=== PATIENT | female | born 1975 | race African-American/Black ===

== ENCOUNTER 2020-04-04 04:15 | Emergency (ER) | payer OTHER ==
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
[2020-04-04 04:50] VITALS: BP 120/75; PULSE 74; TEMP 98.6; BMI 22.6
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
[2020-04-04 09:01] LABS: BASO % 0.5 % (0-2.0); EOS % 0.6 % (0-4.5); HEMATOCRIT 34.8 % (32.4-45.2); HEMOGLOBIN 11.6 GM/dL (10.7-15.3); LYMPH % 32.9 % (8-40); MCH 31.7 pg (25.7-33.7); MCHC 33.2 g/dl (32.0-36.0); MEAN CELL VOLUME 95.4 fl (80-96); MEAN PLT VOLUME 8.5 fl (7.5-11.1); MONO % 6.4 % (3.8-10.2); NEUT % 59.6 % (42.8-82.8); PLATELET COUNT 201 K/MM3 (134-434); RBC 3.65 M/mm3 (3.60-5.2); RDW 13.2 % (11.6-15.6); WHITE BLOOD COUNT 4.6 K/mm3 (4.0-10.0)
[2020-04-04 09:26] LABS: ALK PHOS 43 U/L (45-117); ANION GAP 9 MMOL/L (8-16); BILIRUBIN,TOTAL 0.4 mg/dL (0.2-1); CALCIUM 8.6 mg/dL (8.5-10.1); CHLORIDE 110 mmol/L (98-107); CO2 26 mmol/L (21-32); CREATININE 0.8 mg/dL (0.55-1.3); GLUCOSE,RANDOM 79 mg/dL (74-106); POTASSIUM 3.6 mmol/L (3.5-5.1); SGOT/AST 36 U/L (15-37); SGPT/ALT 24 U/L (13-61); SODIUM 145 mmol/L (136-145); TOT PROT 7.5 g/dl (6.4-8.2)
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
== END 2020-04-04 13:29 | disposition home or self-care (01) ==
LOC: JER 04:15
DX: S02.31XA Fracture of orbital floor, right side, initial encounter for closed fracture (principal)
CPT/HCPCS: 36415; 70450-TC; 70486-TC; 72125-TC; 73562-TC-LT-FY; 73562-TC-RT-FY; 80053; 80307; 84484; 84703; 85025; 99285-25

== ENCOUNTER 2022-06-07 12:57 | Emergency (ER) | payer OTHER ==
[2022-06-07 13:03] VITALS: BP 110/45; PULSE 68; RESP 18; TEMP 98.1; BMI 25.0
[2022-06-07] MEDS ORDERED: KETOROLAC TROMETHAMINE 30 MG/1 ML VIAL IM ONE (14:18)
[2022-06-07] MEDS ORDERED: LIDOCAINE 5% TOPICAL PATCH TP ONE (14:18)
[2022-06-07] MEDS ORDERED: diazePAM 5 MG TABLET PO ONE (14:18)
[2022-06-07] MEDS ORDERED: ACETAMINOPHEN 500 MG TABLET (FP) PO ONE (14:18)
[2022-06-07] MEDS ORDERED: LIDOCAINE 5% TOPICAL PATCH ONE (14:57)
[2022-06-07] MEDS ORDERED: KETOROLAC TROMETHAMINE 30 MG/1 ML VIAL ONE (14:58)
[2022-06-07] MEDS ORDERED: ACETAMINOPHEN 325 MG TABLET (FP) ONE (14:58)
[2022-06-07] MEDS ORDERED: diazePAM 5 MG TABLET ONE (14:58)
[2022-06-07] MEDS ORDERED: LIDOCAINE PATCH REMOVAL MC ONE (22:00)
== END 2022-06-07 15:41 | disposition home or self-care (01) ==
LOC: JER 12:57 → JERFT 12:57
PROC: 3E023GC Introduction of Other Therapeutic Substance into Muscle, Percutaneous Approach (ICD-10-PCS; principal; 2022-06-07)
DX: R07.81 Pleurodynia (principal)
CPT/HCPCS: 71045-TC-FY; 71101-TC-LT-FY; 99284-25

== ENCOUNTER 2023-07-31 04:25 | Day surgery (SDC) | payer OTHER ==
[2023-07-27 10:33] VITALS: BMI 25.7
[2023-07-31] MEDS ORDERED: PROMETHAZINE HCL 25 MG/1 ML VIAL IVPB PRN (09:11)
[2023-07-31] MEDS ORDERED: ONDANSETRON 4 MG/2 ML VIAL IVPUSH PRN ×2 (09:11→10:57)
[2023-07-31] MEDS ORDERED: ACETAMINOPHEN 1000 MG/100 ML BAG IVPB PRN (09:11)
[2023-07-31] MEDS ORDERED: oxyCODONE HCL 5 MG TABLET PO PRN ×3 (09:11→10:57)
[2023-07-31] MEDS ORDERED: LACTATED RINGERS SOLUTION 1,000 ML IV SCH (09:15)
[2023-07-31] MEDS ORDERED: KETOROLAC TROMETHAMINE 30 MG/1 ML VIAL ONE (09:37)
[2023-07-31] MEDS ORDERED: SEVOFLURANE 250 ML BTL ONE (09:37)
[2023-07-31] MEDS ORDERED: LIDOCAINE HCL/PF 2% SDV 5ML VIAL ONE (09:37)
[2023-07-31] MEDS ORDERED: PROPOFOL 20 ML ONE (09:37)
[2023-07-31] MEDS ORDERED: DEXAMETHASONE SOD PHOSPHATE 4 MG/1 ML VIAL ONE (09:37)
[2023-07-31] MEDS ORDERED: ONDANSETRON 4 MG/2 ML VIAL ONE (09:37)
[2023-07-31] MEDS ORDERED: MIDAZOLAM HCL 2 MG/2 ML SINGLE DOSE VIAL ONE (09:37)
[2023-07-31] MEDS ORDERED: IBUPROFEN 600 MG TABLET (FP) PO PRN (10:57)
[2023-07-31] MEDS ORDERED: IBUPROFEN 800 MG/8 ML IJ IVPB PRN (10:57)
[2023-07-31] MEDS ORDERED: ELECTROLYTE-148 SOLN 1,000 ML IV SCH (11:00)
[2023-07-31 11:40] VITALS: TEMP 98.2
[2023-07-31 12:20] VITALS: RESP 16
[2023-07-31 13:17] VITALS: BP 122/72; PULSE 65
== END 2023-07-31 13:50 | disposition home or self-care (01) ==
LOC: JASU-SURG 04:25
PROVIDERS: ATTEND Obstetrics & Gynecology
PROC: 0UDB7ZZ Extraction of Endometrium, Via Natural or Artificial Opening (ICD-10-PCS; principal; 2023-07-31 10:00)
DX: N93.9 Abnormal uterine and vaginal bleeding, unspecified (principal); N84.0 Polyp of corpus uteri; N88.2 Stricture and stenosis of cervix uteri
CPT/HCPCS: 81025; 94760

== ENCOUNTER 2024-06-07 13:14 | Emergency (ER) | payer OTHER ==
[2024-06-07 13:21] VITALS: BP 104/71; PULSE 69; RESP 18; TEMP 98.6; BMI 25.4
[2024-06-07] MEDS ORDERED: ACETAMINOPHEN 325 MG TABLET (FP) ONE (14:11)
[2024-06-07] MEDS: ACETAMINOPHEN 325 MG TABLET (FP) PO ONE (14:15)
== END 2024-06-07 16:30 | disposition home or self-care (01) ==
LOC: JERFT 13:14
DX: S00.83XA Contusion of other part of head, initial encounter (principal); S60.511A Abrasion of right hand, initial encounter; S60.512A Abrasion of left hand, initial encounter; S80.211A Abrasion, right knee, initial encounter; S80.212A Abrasion, left knee, initial encounter; M54.2 Cervicalgia; W01.0XXA Fall on same level from slipping, tripping and stumbling without subsequent striking against object, initial encounter; Y93.01 Activity, walking, marching and hiking
CPT/HCPCS: 70450-TC; 70486-TC; 71046-TC-FY; 72125-TC; 73110-TC-RT-FY; 73130-TC-RT-FY; 73562-TC-LT-FY; 99284-25